=== PATIENT | male | born 1970 | race Caucasian/White ===

== ENCOUNTER 2025-03-09 10:08 | Inpatient (IN) | payer SELFPAY ==
[~2025-03-09] VITALS: Ht 167.6 cm; Wt 92.5 kg
[2025-03-09] VITALS (30 sets, daily range): BP systolic 81–122; BP diastolic 65–86; PULSE 85–110; RESP 16–25; TEMP 36.2–36.9; O2SAT 95–100
[2025-03-09] MEDS: HEPARIN 5000 UNITS/ML VIAL IV ONE (10:24)
[2025-03-09] MEDS: MORPHINE SULFATE 4 MG/ML INJ (FOR IV/IM USE) IV ONE (10:24)
[2025-03-09 10:34] LABS: BASOPHILS % 0.5 % (0.0-2.0); EOSINOPHILS % 2.1 % (0.0-5.0); HEMATOCRIT. 43.3 % (42.0-52.0); HEMOGLOBIN. 14.0 g/dL (14.0-18.0); LYMPHOCYTES % 47.9 % (20.0-50.0); MEAN PLATELET VOLUME 9.7 fl (7.4-10.4); MONOCYTES % 7.5 % (2.0-8.0); NEUTROPHILS % 42.0 % (40.0-76.0); PLATELET 192 x1000/uL (130-400); RED BLOOD CELL COUNT 4.93 mill/uL (4.7-6.1); RED CELL DISTRIBUTION WIDTH 15.0 % (11.6-14.6)
[2025-03-09 10:49] LABS: CREATININE 1.1 mg/dL (0.6-1.3)
[2025-03-09] MEDS ORDERED: FENTANYL CITRATE/PF 50MCG/ML 2ML VIAL ONE ×2 (10:49→11:31)
[2025-03-09] MEDS ORDERED: LIDOCAINE HCL 1% 20ML VIAL ONE (10:49)
[2025-03-09] MEDS ORDERED: MIDAZOLAM HCL 2 MG/2 ML VIAL ONE (10:49)
[2025-03-09] MEDS ORDERED: VERAPAMIL HCL 2.5 MG/1 ML 2ML VIAL IV ONE (10:49)
[2025-03-09] MEDS ORDERED: ATROPINE SULFATE 1MG/10ML SYR ONE (10:49)
[2025-03-09] MEDS ORDERED: DIPHENHYDRAMINE 50MG/ML VIAL ONE (10:49)
[2025-03-09] MEDS ORDERED: HEPARIN 1000 UNITS/ML 10ML ONE (10:49)
[2025-03-09] MEDS ORDERED: IODIXANOL 320 MG/ML 150ML BOTTLE IV ONE (10:49)
[2025-03-09 10:50] LABS: UREA NITROGEN BLOOD 13 mg/dL (9-23)
[2025-03-09 10:51] LABS: ASPARTATE AMINOTRANSFERASE 16 IU/L (<34)
[2025-03-09 10:52] LABS: BILIRUBIN DIRECT 0.2 mg/dL (<=3.0); BILIRUBIN TOTAL 0.8 mg/dL (0.1-1.0); INR 1.0; PROTEIN TOTAL 7.1 g/dL (6.0-8.3)
[2025-03-09] MEDS ORDERED: CLONIDINE 0.1MG TABLET PO PRN (11:00)
[2025-03-09] MEDS ORDERED: IPRATROPIUM/ALBUTEROL 0.5-3(2.5)MG/3ML NEB HHN PRN (11:00)
[2025-03-09] MEDS ORDERED: ACETAMINOPHEN 325MG TABLET PO PRN (11:00)
[2025-03-09] MEDS ORDERED: MAGNESIUM/ALUMINUM HYDROXIDE/SIMETHICONE 30ML UDC PO PRN (11:00)
[2025-03-09] MEDS ORDERED: GUAIFENESIN 200MG/10ML SUGAR FREE UDC PO PRN (11:00)
[2025-03-09] MEDS ORDERED: DEXTROSE 50% WATER 50ML SYRINGE IV PRN (11:00)
[2025-03-09 11:08] LABS: TROPONIN I HIGH SENSITIVITY 142 ng/L (3.0-53)
[2025-03-09] MEDS ORDERED: EPINEPHRINE 0.1MG/ML (1:10,000) 10ML SYR ONE (11:31)
[2025-03-09] MEDS ORDERED: EPTIFIBATIDE 100 ML IV ONE (11:34)
[2025-03-09] MEDS ORDERED: EPTIFIBATIDE 2 MG/ML 10ML VIAL IV ONE (11:36)
[2025-03-09] MEDS ORDERED: IODIXANOL 320MG/ML 100 ML BOTTLE IV ONE (11:46)
[2025-03-09] MEDS ORDERED: TICAGRELOR 90 MG TABLET PO ONE (11:51)
[2025-03-09] MEDS ORDERED: ATROPINE SULFATE 1MG/10ML SYR IV PRN (12:45)
[2025-03-09] MEDS: BLOOD SUGAR DIAGNOSTIC STRIP TEST SCH (12:50)
[2025-03-09] MEDS ORDERED: FUROSEMIDE 100MG/10ML VIAL IVP NR (13:00)
[2025-03-09] MEDS: NITROGLYCERIN 0.4MG TABLET SL SL PRN (13:57)
[2025-03-09] MEDS: MORPHINE SULFATE 4 MG/ML INJ (FOR IV/IM USE) IV PRN (15:44)
[2025-03-09] MEDS ORDERED: NALOXONE HCL 0.4MG/ML VIAL IV PRN (15:45)
[2025-03-09] MEDS: INSULIN LISPRO 100 UNITS/ML SUBCUT SCH (15:45)
[2025-03-09] MEDS: FUROSEMIDE 40MG/4ML VIAL IVP SCH (15:53)
[2025-03-09 16:22] LABS: CREATINE KINASE MB FRACTION 204.0 ng/mL (0.5-3.6)
[2025-03-09 16:24] LABS: PHOSPHORUS 2.5 mg/dL (2.5-4.9)
[2025-03-09] MEDS: AMIODARONE 150MG/100ML D5W 100 ML IV SCH (16:32)
[2025-03-09 16:44] LABS: TROPONIN I HIGH SENSITIVITY 80422 ng/L (3.0-53)
[2025-03-09] MEDS: EPTIFIBATIDE 100 ML IV SCH (18:31)
[2025-03-09] MEDS: MAGNESIUM/ALUMINUM HYDROXIDE/SIMETHICONE 30ML UDC PO SCH (18:48)
[2025-03-09] MEDS: PANTOPRAZOLE 40MG DR TABLET PO SCH (18:51)
[2025-03-09] MEDS: TICAGRELOR 90 MG TABLET PO SCH (20:21)
[2025-03-09] MEDS: ONDANSETRON HCL 4MG/2ML INJ IV PRN (20:34)
[2025-03-09 22:58] LABS: TROPONIN I HIGH SENSITIVITY 171370 ng/L (3.0-53)
[2025-03-10] VITALS (40 sets, daily range): BP systolic 83–102; BP diastolic 63–74; PULSE 84–117; RESP 14–27; TEMP 36.7–37.5; O2SAT 94–98
[2025-03-10 00:23] LABS: CREATINE KINASE MB FRACTION 197.9 ng/mL (0.5-3.6)
[2025-03-10 01:51] LABS: TROPONIN I HIGH SENSITIVITY 216910 ng/L (3.0-53)
[2025-03-10 07:19] LABS: BASOPHILS % 0.1 % (0.0-2.0); EOSINOPHILS % 0.1 % (0.0-5.0); HEMATOCRIT. 41.6 % (42.0-52.0); HEMOGLOBIN. 13.6 g/dL (14.0-18.0); LYMPHOCYTES % 10.1 % (20.0-50.0); MEAN PLATELET VOLUME 10.1 fl (7.4-10.4); MONOCYTES % 7.6 % (2.0-8.0); NEUTROPHILS % 82.1 % (40.0-76.0); PLATELET 178 x1000/uL (130-400); RED BLOOD CELL COUNT 4.76 mill/uL (4.7-6.1); RED CELL DISTRIBUTION WIDTH 15.1 % (11.6-14.6)
[2025-03-10 07:20] LABS: CREATININE 1.0 mg/dL (0.6-1.3); TRIGLYCERIDE 122 mg/dL (0-150); UREA NITROGEN BLOOD 15 mg/dL (9-23)
[2025-03-10 07:21] LABS: LDL CHOLESTEROL 86 mg/dL (5-100)
[2025-03-10 07:22] LABS: T4 FREE 0.99 ng/dL (0.89-1.76)
[2025-03-10] MEDS: PANTOPRAZOLE SODIUM 40 MG/VIAL IV SCH (08:47)
[2025-03-10] MEDS: ASPIRIN 81MG TABLET PO SCH (08:48)
[2025-03-10] MEDS: ACETAMINOPHEN 325MG TABLET PO PRN (10:26)
[2025-03-10 12:07] LABS: CREATINE KINASE MB FRACTION 102.0 ng/mL (0.5-3.6)
[2025-03-10 12:44] LABS: TROPONIN I HIGH SENSITIVITY 143822 ng/L (3.0-53)
[2025-03-10] MEDS: INSULIN LISPRO 100 UNITS/ML SUBCUT SCH (18:31)
[2025-03-10 18:55] LABS: CREATINE KINASE MB FRACTION 49.5 ng/mL (0.5-3.6)
[2025-03-10 19:20] LABS: TROPONIN I HIGH SENSITIVITY 108675 ng/L (3.0-53)
[2025-03-10] MEDS: ENOXAPARIN 30MG/0.3ML SYR SUBCUT SCH (20:23)
[2025-03-10] MEDS: ATORVASTATIN CALCIUM 40MG TABLET PO SCH (20:24)
[2025-03-10] MEDS: METOPROLOL TARTRATE 25MG TABLET PO SCH (20:37)
[2025-03-10] MEDS: INSULIN GLARGINE 100 UNITS/ML SUBCUT SCH (21:33)
[2025-03-11] VITALS (18 sets, daily range): BP systolic 90–99; BP diastolic 55–97; PULSE 94–105; RESP 12–21; TEMP 36.8–37.6; O2SAT 93–98
[2025-03-11 02:11] LABS: CREATINE KINASE MB FRACTION 20.5 ng/mL (0.5-3.6)
[2025-03-11 02:55] LABS: TROPONIN I HIGH SENSITIVITY 84855 ng/L (3.0-53)
[2025-03-11 06:33] LABS: PLATELET 144 x1000/uL (130-400); RED BLOOD CELL COUNT 4.62 mill/uL (4.7-6.1); RED CELL DISTRIBUTION WIDTH 15.2 % (11.6-14.6)
[2025-03-11 07:00] LABS: CREATININE 0.9 mg/dL (0.6-1.3); UREA NITROGEN BLOOD 17 mg/dL (9-23)
[2025-03-11 07:02] LABS: PHOSPHORUS 2.4 mg/dL (2.5-4.9)
[2025-03-11] MEDS ORDERED: METO25TA6 PO (13:28)
[2025-03-11] MEDS ORDERED: NITR0.4T49 SL (13:28)
[2025-03-11] MEDS ORDERED: CLOP-31 PO (13:28)
[2025-03-11] MEDS ORDERED: ASPI-1160 PO (13:28)
[2025-03-11] MEDS ORDERED: LIP40 PO (13:28)
[2025-03-11] MEDS ORDERED: EMPA10TA MT (13:31)
[2025-03-11] MEDS: MIDODRINE HCL 5MG TABLET PO SCH (15:27)
[2025-03-11] MEDS: PANTOPRAZOLE SODIUM 40 MG/VIAL IV SCH (15:27)
[2025-03-12] VITALS: BP 93/72; PULSE 93; RESP 22; TEMP 36.5; O2SAT 97
[2025-03-12 04:00] VITALS: BP 95/70; PULSE 94; RESP 29; TEMP 36.4; O2SAT 93
[2025-03-12 06:23] LABS: PLATELET 140 x1000/uL (130-400); RED BLOOD CELL COUNT 4.18 mill/uL (4.7-6.1); RED CELL DISTRIBUTION WIDTH 15.0 % (11.6-14.6)
[2025-03-12 06:46] LABS: CREATININE 1.0 mg/dL (0.6-1.3); UREA NITROGEN BLOOD 18 mg/dL (9-23)
[2025-03-12 06:48] LABS: PHOSPHORUS 2.4 mg/dL (2.5-4.9)
[2025-03-12 08:00] VITALS: BP 90/65; PULSE 96; RESP 18; TEMP 37; O2SAT 97
[2025-03-12] MEDS ORDERED: METO25TA6 PO (09:27)
[2025-03-12] MEDS ORDERED: TICA90TA MT (09:27)
[2025-03-12 12:00] VITALS: BP 95/73; PULSE 98; RESP 22; TEMP 36.4; O2SAT 94
[2025-03-12] MEDS: TICAGRELOR 90 MG TABLET PO NR (13:00)
[2025-03-12 16:00] VITALS: BP 96/76; PULSE 102; RESP 19; TEMP 36.7; O2SAT 93
[2025-03-12] MEDS: FUROSEMIDE 40MG/4ML VIAL IVP SCH (18:29)
[2025-03-12 20:00] VITALS: BP 91/70; PULSE 106; RESP 29; TEMP 37.3; O2SAT 94
[2025-03-12] MEDS: FAMOTIDINE 20MG TABLET PO SCH (20:36)
[2025-03-12] MEDS: DOCUSATE SODIUM 100MG CAPSULE PO PRN (20:36)
[2025-03-12] MEDS ORDERED: POLYETHYLENE GLYCOL 3350 (17GM) 1 DOSE PACK PO PRN (21:00)
[2025-03-13 00:07] VITALS: BP 88/64; PULSE 94; RESP 15; TEMP 37; O2SAT 96
[2025-03-13 04:25] VITALS: BP 99/71; PULSE 99; RESP 12; TEMP 36.4; O2SAT 91
[2025-03-13 06:25] LABS: BASOPHILS % 0.4 % (0.0-2.0); EOSINOPHILS % 0.7 % (0.0-5.0); HEMATOCRIT. 35.6 % (42.0-52.0); HEMOGLOBIN. 11.9 g/dL (14.0-18.0); LYMPHOCYTES % 22.1 % (20.0-50.0); MEAN PLATELET VOLUME 10.4 fl (7.4-10.4); MONOCYTES % 9.4 % (2.0-8.0); NEUTROPHILS % 67.4 % (40.0-76.0); PLATELET 141 x1000/uL (130-400); RED BLOOD CELL COUNT 4.21 mill/uL (4.7-6.1); RED CELL DISTRIBUTION WIDTH 15.2 % (11.6-14.6)
[2025-03-13 06:49] LABS: CREATININE 1.1 mg/dL (0.6-1.3); UREA NITROGEN BLOOD 21 mg/dL (9-23)
[2025-03-13 08:00] VITALS: BP 91/66; PULSE 94; RESP 28; TEMP 36.7; O2SAT 97
[2025-03-13] MEDS ORDERED: CLOP-31 MT (08:15)
[2025-03-13] MEDS: CLOPIDOGREL 75MG TABLET PO SCH (08:35)
[2025-03-13] MEDS ORDERED: FURO-151 PO (11:48)
[2025-03-13] MEDS ORDERED: SPIR25TA6 MT (11:49)
[2025-03-13 12:00] VITALS: BP 91/62; PULSE 94; RESP 15; TEMP 36.8; O2SAT 99
[2025-03-13] MEDS: POTASSIUM CHLORIDE 20MEQ TABLET SR PO NR (12:11)
[2025-03-13 12:43] VITALS: BP 91/69; PULSE 95; RESP 20; TEMP 99
== END 2025-03-13 14:37 | disposition home or self-care (01) | DRG 174 ==
LOC: ER 10:08 → CVICU 10:51 → EDBEDREQ 10:52 → ENRESERV 11:21 → 3WST 03-11 11:43
PROVIDERS: ADMIT Hospitalist; ATTEND Hospitalist
PROC: 4A023N7 Measurement of Cardiac Sampling and Pressure, Left Heart, Percutaneous Approach (ICD-10-PCS; principal; 2025-03-09)
PROC: 027035Z Dilation of Coronary Artery, One Artery with Two Drug-eluting Intraluminal Devices, Percutaneous Approach (ICD-10-PCS; 2025-03-09)
PROC: B215YZZ Fluoroscopy of Left Heart using Other Contrast (ICD-10-PCS; 2025-03-09)
PROC: B211YZZ Fluoroscopy of Multiple Coronary Arteries using Other Contrast (ICD-10-PCS; 2025-03-09)
DX: I21.09 ST elevation (STEMI) myocardial infarction involving other coronary artery of anterior wall (principal); I47.20 Ventricular tachycardia, unspecified; I50.22 Chronic systolic (congestive) heart failure; E11.9 Type 2 diabetes mellitus without complications; I25.10 Atherosclerotic heart disease of native coronary artery without angina pectoris; E78.5 Hyperlipidemia, unspecified; Z79.899 Other long term (current) drug therapy; Z79.02 Long term (current) use of antithrombotics/antiplatelets; Z79.82 Long term (current) use of aspirin; Z79.84 Long term (current) use of oral hypoglycemic drugs
CPT/HCPCS: 36415; 71045; 76700; 80048; 80061; 80076; 82550; 82553; 82962; 83036; 83735; 83880; 84100; 84439; 84443; 84484; 85025; 85027; 85347; 86850; 86900; 92928; 93005; 93306; 93458; 99291; A4606; C1725; C1769; C1874; C1887; C1893; J0282; J0461; J1200; J1327; J1644; J1650; J1815; J1938; J2003; J2250; J2270; J2405; J2470; J3010; J3490; Q9967; J8499